=== PATIENT | female | born 1995 | race Hispanic/Latino ===

== ENCOUNTER 2023-03-31 22:03 | Emergency (ER) | payer OTHER ==
[~2023-03-31] VITALS: Ht 152.4 cm; Wt 81.0 kg
[~2023-03-31 22:03] MED LIST: FAMO20TA PO; ONDA4TAB6 PO
[2023-03-31 22:04] VITALS: BP 130/62; TEMP 98.6; O2SAT 97
== END 2023-04-01 00:01 | disposition left against medical advice (07) ==
LOC: M ED 22:03
DX: Z53.21 Procedure and treatment not carried out due to patient leaving prior to being seen by health care provider (principal)

== ENCOUNTER 2023-04-07 11:37 | Outpatient (CLI) | payer OTHER ==
[~2023-04-07] VITALS: Ht 152.4 cm; Wt 79.4 kg
[2023-04-07 11:58] VITALS: BP 121/67
[2023-04-07] MEDS ORDERED: PRENTAB9 PO (12:01)
[2023-04-07] MEDS ORDERED: HOME MED LIST COMPLETE! XX SCH (12:05)
== END 2023-04-07 13:20 | disposition home or self-care (01) ==
LOC: M LDO 11:37
PROVIDERS: ATTEND Obstetrics & Gynecology
DX: O36.8130 Decreased fetal movements, third trimester, not applicable or unspecified (principal); Z3A.38 38 weeks gestation of pregnancy; O47.1 False labor at or after 37 completed weeks of gestation
CPT/HCPCS: 59025; G0463

== ENCOUNTER → 2023-06-06 | Outpatient (CLI) | payer OTHER ==
[~2023-06-06] MED LIST changes: +ACET1TAB55 PO; +COLA100C5 PO; +IBUP-1022 PO; +PRENTAB9 PO
== END ==
LOC: M WUC 09:50
PROVIDERS: ATTEND Student in an Organized Health Care Education/Training Program
DX: M25.531 Pain in right wrist (principal); M25.532 Pain in left wrist